=== PATIENT | female | born 1955 | race Caucasian/White ===

== ENCOUNTER 2019-10-15 12:09 | Observation (INO) ==
[2019-10-15 13:46] LABS: Basophils # 0.1 K/mcL (0.0-0.2); Basophils % 0.6 %; Eosinophils # 0.4 K/mcL (0.0-0.6); Eosinophils % 4.2 %; Hematocrit 42.3 % (35.3-44.9); Hemoglobin 13.7 g/dL (11.5-15.4); Immature Granulocytes % 0.6 % (0-4); Lymphocytes # 2.9 K/mcL (0.6-4.6); Lymphocytes % 28.6 %; Mean Corpuscular HGB Conc 32.4 g/dL (31.6-35.5); Mean Corpuscular Hemoglobin 29.3 pg (28.0-33.3); Mean Corpuscular Volume 90.4 fL (83.0-100.0); Mean Platelet Volume 10.2 fL (9.4-12.4); Monocytes # 1.1 K/mcL (0.0-1.3); Monocytes % 11.1 %; Neutrophils # 5.5 K/mcL (1.6-8.9); Platelet Count 296 K/mcL (140-400); Red Blood Count 4.68 M/mcL (3.82-4.97); Red Cell Distribution Width 13.4 % (11.5-14.5); Segmented Neutrophils % 54.9 %
[2019-10-15 13:48] LABS: Activated Partial Thrombo Time 25.4 Seconds (26.0-36.0)
[2019-10-15 14:10] LABS: Alanine Aminotransferase 9 Units/L (7-52); Albumin 3.7 g/dL (3.5-5.7); Albumin/Globulin Ratio 1.3 (1.1-2.2); Alkaline Phosphatase 83 Units/L (34-104); Aspartate Amino Transferase 12 Units/L (13-39); BUN/Creatinine Ratio 16 (6-26); Bilirubin,Direct 0.1 mg/dL (0.0-0.2); Bilirubin,Indirect 0.3 mg/dL (0.0-1.0); Bilirubin,Total 0.4 mg/dL (0.3-1.0); Blood Urea Nitrogen 20 mg/dL (8-23); Calcium 8.9 mg/dL (8.6-10.3); Carbon Dioxide 28 mEq/L (23-29); Chloride 106 mEq/L (98-107); Globulin 2.9 g/dL (2.4-3.5); Glucose 126 mg/dL (70-105); Osmolality,Calculated 294 (280-300); Potassium 4.2 mEq/L (3.5-5.1); Sodium 140 mEq/L (136-145); Total Protein 6.6 g/dL (6.4-8.9); Troponin I < 0.03 ng/mL (< 0.04); eGFR For African Americans 51 (> 60); eGFR For Non-African Americans 42 (> 60)
[2019-10-15 15:25] LABS: Bilirubin,Urine Small (Negative); Blood,Urine Negative (Negative); Clarity,Urine Clear (Clear); Color,Urine Dark Yellow (Yellow); Glucose,Urine (UA) Normal (Normal); Ketones,Urine Negative (Negative); Leukocyte Esterase,Urine Negative (Negative); Nitrite,Urine Negative (Negative); PH,Urine 5.5 pH Units (5.0-8.0); Protein,Urine Trace mg/dL (Neg-Trace); Specific Gravity,Urine > 1.030 (1.010-1.025); Urobilinogen,Urine Normal (Normal)
[2019-10-15] MEDS ORDERED: *HR* Heparin 5,000 UNIT/ML VIAL IVP PRN ×2 (17:04)
[2019-10-15] MEDS ORDERED: *HR* Heparin 5,000 UNIT/ML VIAL IVP ONE (17:04)
[2019-10-15] MEDS ORDERED: Heparin 25,000 UNIT/250 ML D5W 25,000 UNIT/250 ML IV.SOLN IVC SCH (17:15)
[2019-10-15 17:51] LABS: INR 0.9; Prothrombin Time 10.1 Seconds (9.4-12.1)
[2019-10-15] MEDS ORDERED: Naloxone 0.4 MG/ML INJ IVP PRN (18:00)
[2019-10-15 19:25] LABS: Hematocrit 39.8 % (35.3-44.9); Hemoglobin 12.8 g/dL (11.5-15.4); Mean Corpuscular HGB Conc 32.2 g/dL (31.6-35.5); Mean Platelet Volume 10.2 fL (9.4-12.4); Platelet Count 260 K/mcL (140-400); Red Blood Count 4.42 M/mcL (3.82-4.97); Red Cell Distribution Width 13.4 % (11.5-14.5); White Blood Count 10.4 K/mcL (4.3-11.1)
[2019-10-15] MEDS ORDERED: 0.9 % Sodium Chloride 1,000 ML IVC SCH (19:30)
[2019-10-15] MEDS ORDERED: *HR* OxyCODONE/APAP 7.5/325 TABLET PO PRN ×2 (19:32→19:46)
[2019-10-15] MEDS ORDERED: Nitroglycerin 0.4 MG TAB.SUBL SL PRN (20:55)
[2019-10-15] MEDS ORDERED: Melatonin 3 MG TABLET PO SCH (21:00)
[2019-10-15] MEDS: Cefepime HCl 2,000 MG in Water for inj. (sterile) 20 ML IVP SCH (22:00)
[2019-10-15] MEDS: Diltiazem CD (24hr) 180 MG CAPSULE PO SCH (23:51)
[2019-10-15] MEDS: Gabapentin 300 MG CAPSULE PO SCH (23:51)
[2019-10-15] MEDS: FLUoxetine 20 MG CAPSULE PO SCH (23:58)
[2019-10-16 02:53] LABS: Basophils # 0.1 K/mcL (0.0-0.2); Basophils % 0.7 %; Eosinophils # 0.5 K/mcL (0.0-0.6); Eosinophils % 5.9 %; Hematocrit 35.2 % (35.3-44.9); Hemoglobin 11.6 g/dL (11.5-15.4); Immature Granulocytes % 0.6 % (0-4); Lymphocytes % 35.3 %; Mean Corpuscular Hemoglobin 30.1 pg (28.0-33.3); Mean Corpuscular Volume 91.2 fL (83.0-100.0); Mean Platelet Volume 10.6 fL (9.4-12.4); Monocytes % 11.3 %; Neutrophils # 3.9 K/mcL (1.6-8.9); Platelet Count 239 K/mcL (140-400); Red Blood Count 3.86 M/mcL (3.82-4.97); Red Cell Distribution Width 13.5 % (11.5-14.5); Segmented Neutrophils % 46.2 %; White Blood Count 8.4 K/mcL (4.3-11.1)
[2019-10-16 03:11] LABS: BUN/Creatinine Ratio 19 (6-26); Blood Urea Nitrogen 19 mg/dL (8-23); Calcium 7.9 mg/dL (8.6-10.3); Carbon Dioxide 25 mEq/L (23-29); Chloride 108 mEq/L (98-107); Glucose 105 mg/dL (70-105); Osmolality,Calculated 293 (280-300); Potassium 4.2 mEq/L (3.5-5.1); Sodium 140 mEq/L (136-145); eGFR For African Americans > 60 (> 60); eGFR For Non-African Americans 55 (> 60)
[2019-10-16] MEDS: Cefepime HCl 2,000 MG in Water for inj. (sterile) 20 ML IVP SCH (05:46)
[2019-10-16] MEDS ORDERED: *HR* OxyCODONE/APAP 5/325 TABLET PO PRN ×2 (08:59→14:20)
[2019-10-16] MEDS: FLUoxetine 20 MG CAPSULE PO SCH (09:00)
[2019-10-16] MEDS: Diltiazem CD (24hr) 180 MG CAPSULE PO SCH (09:00)
[2019-10-16] MEDS ORDERED: BuPROPion XL (24 HR) 150 MG TABLET PO SCH (09:00)
[2019-10-16] MEDS: Gabapentin 300 MG CAPSULE PO SCH (09:01)
[2019-10-16 10:01] VITALS: BP 129/78
[2019-10-16] MEDS ORDERED: *HR* Enoxaparin 100 MG/ML SYRINGE SQ ONE (17:00)
[2019-10-16] MEDS ORDERED: Aminoglycoside Consult 1 EACH MC ONE (17:12)
== END 2019-10-16 17:13 | disposition home or self-care (01) ==
LOC: 3ANU 12:09 → EMEROOARM 12:09 → 3ANU 22:30
PROVIDERS: ADMIT Internal Medicine; ATTEND Internal Medicine

== ENCOUNTER 2020-09-14 08:43 | Inpatient (IN) ==
[2020-09-14] MEDS ORDERED: Ondansetron 4 MG/2 ML VIAL IVP PRN (10:25)
[2020-09-14] MEDS ORDERED: Ipratropium/Albuterol Neb 3 ML IH PRN (10:27)
[2020-09-14] MEDS: Ipratropium/Albuterol Neb 3 ML IH SCH ×3 (11:30→19:54)
[2020-09-14 11:34] LABS: Basophils % 0.2 %; Hematocrit 40.6 % (35.3-44.9); Hemoglobin 12.5 g/dL (11.5-15.4); Immature Granulocytes % 0.6 % (0-4); Lymphocytes # 0.6 K/mcL (0.6-4.6); Lymphocytes % 5.8 %; Mean Corpuscular HGB Conc 30.8 g/dL (31.6-35.5); Mean Corpuscular Hemoglobin 26.8 pg (28.0-33.3); Mean Corpuscular Volume 86.9 fL (83.0-100.0); Mean Platelet Volume 10.3 fL (9.4-12.4); Monocytes # 0.1 K/mcL (0.0-1.3); Monocytes % 0.7 %; Neutrophils # 10.2 K/mcL (1.6-8.9); Platelet Count 251 K/mcL (140-400); Red Blood Count 4.67 M/mcL (3.82-4.97); Red Cell Distribution Width 14.8 % (11.5-14.5); Segmented Neutrophils % 92.7 %
[2020-09-14 11:36] LABS: VBG HCO3 21 mEq/L (21-27); VBG PCO2 33 mmHg (41-51); VBG PH 7.41 pH Units (7.32-7.42); VBG PO2 109 mmHg (25-50)
[2020-09-14 11:38] LABS: INR 1.1; Prothrombin Time 13.1 Seconds (9.4-12.1)
[2020-09-14] MEDS ORDERED: Lidocaine -MPF 1% 5 ML AMPUL INFILT ONE (11:44)
[2020-09-14] MEDS ORDERED: Isovue-370 500 ML BOTTLE IVP ONE (11:54)
[2020-09-14 11:55] LABS: Alanine Aminotransferase 8 Units/L (7-52); Albumin 3.9 g/dL (3.5-5.7); Albumin/Globulin Ratio 1.2 (1.1-2.2); Alkaline Phosphatase 116 Units/L (34-104); Aspartate Amino Transferase 11 Units/L (13-39); BUN/Creatinine Ratio 16 (6-26); Bilirubin,Direct 0.1 mg/dL (0.0-0.2); Bilirubin,Indirect 0.2 mg/dL (0.0-1.0); Bilirubin,Total 0.3 mg/dL (0.3-1.0); Blood Urea Nitrogen 13 mg/dL (8-23); Calcium 9.1 mg/dL (8.6-10.3); Carbon Dioxide 20 mEq/L (23-29); Chloride 107 mEq/L (98-107); Globulin 3.2 g/dL (2.4-3.5); Glucose 176 mg/dL (70-105); Magnesium 1.9 mg/dL (1.6-2.6); Osmolality,Calculated 292 (280-300); Potassium 3.9 mEq/L (3.5-5.1); Sodium 139 mEq/L (136-145); Total Protein 7.1 g/dL (6.4-8.9); eGFR For African Americans > 60 (> 60); eGFR For Non-African Americans > 60 (> 60)
[2020-09-14] MEDS: Acetaminophen 325 MG TABLET PO PRN ×2 (12:31→20:25)
[2020-09-14] MEDS ORDERED: GuaiFENesin/Dextromethorphan TABLET PO ONE (15:04)
[2020-09-14] MEDS ORDERED: 0.9 % Sodium Chloride 1,000 ML IVC ONE ×2 (17:57→22:10)
[2020-09-14] MEDS: GuaiFENesin/Dextromethorphan TABLET PO SCH (19:57)
[2020-09-14] MEDS: atenoloL 50 MG TABLET PO SCH (19:57)
[2020-09-14] MEDS: DilTIAZem CD (24hr) 180 MG CAP.ER.24H PO SCH (19:57)
[2020-09-15 04:04] LABS: Hematocrit 33.4 % (35.3-44.9); Hemoglobin 10.5 g/dL (11.5-15.4); Mean Corpuscular HGB Conc 31.4 g/dL (31.6-35.5); Mean Corpuscular Hemoglobin 27.2 pg (28.0-33.3); Mean Corpuscular Volume 86.5 fL (83.0-100.0); Mean Platelet Volume 10.3 fL (9.4-12.4); Platelet Count 214 K/mcL (140-400); Red Blood Count 3.86 M/mcL (3.82-4.97); Red Cell Distribution Width 15.3 % (11.5-14.5); White Blood Count 15.4 K/mcL (4.3-11.1)
[2020-09-15 04:28] LABS: BUN/Creatinine Ratio 20 (6-26); Blood Urea Nitrogen 17 mg/dL (8-23); Calcium 8.6 mg/dL (8.6-10.3); Carbon Dioxide 22 mEq/L (23-29); Chloride 110 mEq/L (98-107); Glucose 195 mg/dL (70-105); Osmolality,Calculated 295 (280-300); Potassium 4.2 mEq/L (3.5-5.1); Sodium 139 mEq/L (136-145); eGFR For African Americans > 60 (> 60); eGFR For Non-African Americans > 60 (> 60)
[2020-09-15] MEDS ORDERED: *HR* Enoxaparin 40 MG/0.4 ML SYRINGE SQ SCH (06:00)
[2020-09-15] MEDS: predniSONE 20 MG TABLET PO SCH (07:59)
[2020-09-15] MEDS: Acetaminophen 325 MG TABLET PO PRN ×2 (07:59→19:50)
[2020-09-15] MEDS: BuPROPion XL (24 HR) 150 MG TABLET PO SCH (08:00)
[2020-09-15] MEDS: atenoloL 50 MG TABLET PO SCH ×2 (08:00→19:41)
[2020-09-15] MEDS: FLUoxetine 20 MG CAPSULE PO SCH (08:00)
[2020-09-15] MEDS: DilTIAZem CD (24hr) 180 MG CAP.ER.24H PO SCH ×2 (08:00→19:41)
[2020-09-15] MEDS: Aspirin Enteric Coated 81 MG Tablet PO SCH (08:00)
[2020-09-15] MEDS: GuaiFENesin/Dextromethorphan TABLET PO SCH ×2 (08:00→19:41)
[2020-09-15] MEDS ORDERED: Perflutren Lipid Microsphere 1.3 ML in 0.9 % Sodium Chloride 8.7 ML IVP PRN (10:26)
[2020-09-15] MEDS: Ipratropium/Albuterol Neb 3 ML IH SCH ×4 (11:29→22:55)
[2020-09-15] MEDS: Doxycycline 100 MG CAPSULE PO SCH ×2 (13:11→19:40)
[2020-09-15 13:49] LABS: Basophils % 0.1 %; Hematocrit 35.8 % (35.3-44.9); Hemoglobin 11.3 g/dL (11.5-15.4); Immature Granulocytes % 0.5 % (0-4); Lymphocytes % 6.8 %; Mean Corpuscular HGB Conc 31.6 g/dL (31.6-35.5); Mean Corpuscular Hemoglobin 27.7 pg (28.0-33.3); Mean Corpuscular Volume 87.7 fL (83.0-100.0); Mean Platelet Volume 10.7 fL (9.4-12.4); Monocytes # 0.5 K/mcL (0.0-1.3); Monocytes % 3.5 %; Neutrophils # 13.3 K/mcL (1.6-8.9); Platelet Count 242 K/mcL (140-400); Red Blood Count 4.08 M/mcL (3.82-4.97); Red Cell Distribution Width 15.4 % (11.5-14.5); Segmented Neutrophils % 89.1 %
[2020-09-15] MEDS ORDERED: *HR* Rivaroxaban 10 MG TABLET PO SCH (18:00)
[2020-09-16] MEDS: Ipratropium/Albuterol Neb 3 ML IH SCH ×3 (04:17→11:17)
[2020-09-16] MEDS: Doxycycline 100 MG CAPSULE PO SCH (09:19)
[2020-09-16] MEDS: DilTIAZem CD (24hr) 180 MG CAP.ER.24H PO SCH (09:19)
[2020-09-16] MEDS: Aspirin Enteric Coated 81 MG Tablet PO SCH (09:19)
[2020-09-16] MEDS: FLUoxetine 20 MG CAPSULE PO SCH (09:19)
[2020-09-16] MEDS: predniSONE 20 MG TABLET PO SCH (09:19)
[2020-09-16] MEDS: Acetaminophen 325 MG TABLET PO PRN (09:21)
[2020-09-16] MEDS: atenoloL 50 MG TABLET PO SCH (09:21)
[2020-09-16] MEDS: GuaiFENesin/Dextromethorphan TABLET PO SCH (09:21)
[2020-09-16 09:52] LABS: Basophils # 0.1 K/mcL (0.0-0.2); Basophils % 0.5 %; Eosinophils # 0.1 K/mcL (0.0-0.6); Eosinophils % 0.7 %; Hematocrit 35.7 % (35.3-44.9); Hemoglobin 11.1 g/dL (11.5-15.4); Immature Granulocytes % 0.6 % (0-4); Lymphocytes # 3.3 K/mcL (0.6-4.6); Mean Corpuscular HGB Conc 31.1 g/dL (31.6-35.5); Mean Corpuscular Hemoglobin 27.3 pg (28.0-33.3); Mean Corpuscular Volume 87.7 fL (83.0-100.0); Mean Platelet Volume 10.1 fL (9.4-12.4); Monocytes # 1.2 K/mcL (0.0-1.3); Monocytes % 9.6 %; Neutrophils # 7.2 K/mcL (1.6-8.9); Platelet Count 240 K/mcL (140-400); Red Blood Count 4.07 M/mcL (3.82-4.97); Red Cell Distribution Width 15.5 % (11.5-14.5); Segmented Neutrophils % 60.6 %; White Blood Count 11.9 K/mcL (4.3-11.1)
[2020-09-16 10:11] LABS: BUN/Creatinine Ratio 19 (6-26); Blood Urea Nitrogen 17 mg/dL (8-23); Calcium 8.4 mg/dL (8.6-10.3); Carbon Dioxide 25 mEq/L (23-29); Chloride 107 mEq/L (98-107); Glucose 128 mg/dL (70-105); Magnesium 1.8 mg/dL (1.6-2.6); Osmolality,Calculated 291 (280-300); Phosphorous 2.9 mg/dL (2.7-4.5); Potassium 3.3 mEq/L (3.5-5.1); Sodium 139 mEq/L (136-145); eGFR For African Americans > 60 (> 60); eGFR For Non-African Americans > 60 (> 60)
[2020-09-16] MEDS ORDERED: GuaiFENesin/Codeine Oral Soln 5 ML UDC PO PRN (10:40)
[2020-09-16] MEDS: BuPROPion XL (24 HR) 150 MG TABLET PO SCH (12:00)
[2020-09-16 15:03] VITALS: BP 109/69
== END 2020-09-16 16:37 | disposition home or self-care (01) | DRG 190 ==
LOC: 3BNU → SUATTDRO 10:13
PROVIDERS: ADMIT Internal Medicine; ATTEND Internal Medicine